=== PATIENT | male | born 1995 ===

== ENCOUNTER 2022-01-29 19:42 | Emergency (ER) | payer SELFPAY ==
[2022-01-29 19:44] VITALS: BP 154/113
[2022-01-29] MEDS ORDERED: SODIUM CHLORIDE 0.9% 1000 ML 1,000 ML ONE (23:20)
== END 2022-01-30 05:03 | disposition left against medical advice (07) ==
LOC: ED 19:42
DX: K61.1 Rectal abscess (principal); Z53.21 Procedure and treatment not carried out due to patient leaving prior to being seen by health care provider
CPT/HCPCS: J7030